=== PATIENT | male | born 1950 | race Caucasian/White ===

== ENCOUNTER → 2020-12-02 | Outpatient (CLI) | payer BC ==
[~2020-12-02] MED LIST: FLEXERIL PO; HTN MED; IBUPROFEN 800800 M1 PO; IBUPROFEN 800800 MG PO; NORCO 5-325 TA1 EACH PO
== END ==
LOC: SJCVCIMAG 10:11
PROVIDERS: ATTEND Internal Medicine Cardiovascular Disease
DX: I11.9 Hypertensive heart disease without heart failure (principal); I48.91 Unspecified atrial fibrillation

== ENCOUNTER → 2020-12-14 | Outpatient (CLI) | payer BC | LOC: SJCVCIMAG 09:01 | PROVIDERS: ATTEND Internal Medicine Cardiovascular Disease | DX: I49.3 Ventricular premature depolarization (principal); I48.91 Unspecified atrial fibrillation; R06.00 Dyspnea, unspecified; E78.5 Hyperlipidemia, unspecified; I10 Essential (primary) hypertension; Z79.899 Other long term (current) drug therapy ==

== ENCOUNTER → 2021-02-03 | Outpatient (CLI) | payer BC ==
[~2021-02-03] VITALS: Ht 175.3 cm; Wt 132.0 kg
[~2021-02-03] MED LIST changes: +BISOPROLOL-HCT1 EAC1 PO; +BROMFENAC SODI1.7 ML OPHTHALMIC; +ROSUVASTATIN CA10 MG PO; +XARELTO20 MG PO; +ZESTRIL40 MG PO
[2021-02-03 07:40] VITALS: BP 138/78
--- NOTE | 2021-02-03 09:37 | TEE ---
[facility] [address] TRANSESOPHAGEAL ECHOCARDIOGRAM Name: NELSY SCOTT Room #: REG OLLIE Medrano#: [id number] Admission: 02/03/21 Attend Phys: Wolf De Leon MD, Discharge: Date of : 54 Report #: [id number] THIS REPORT FOR: cc: Matt Koehler MD, Christopher B. MD Lundgren, Craig H. MD [facility] ~ APPROVED REPORT Study performed: 02/03/2021 08:35:19 EXAM: Transesophageal Echocardiogram with Doppler and Cardioversion Patient Location: [facility] Room #: 9 Status: routine BSA: 2.42 HR: 54 bpm BP: 98/62 mmHg Rhythm: Atrial Fibrillation Other Information Study Quality: Good Indications Atrial Fibrillation 2D Dimensions Ascending Ao: 4.70 (22-36mm) Procedure After obtaining informed consent, patient underwent transesophageal echo in the [employer]. Type of Sedation : Conscious Sedation Sedation was administered by RN. Sedation start time: 839 Case end Time: 851 Versed (5) Fentanyl (50) Transesophageal probe was inserted and advanced into esophagus without difficulty by Wolf De Leon MD. Echo enhancement indication: R/O Septal defect. Echo enhancement agent administered: Agitated Saline The SUSY was performed without complications. Synchronized Cardioversion acheived with 200 Joules after 1 attempt(s). Rhythm following Synchronized Cardioversion: Normal Sinus Rhythm [facility] [address] [place] [address] TRANSESOPHAGEAL ECHOCARDIOGRAM Name: NELSY SCOTT Room #: REG [facility].#: [id number] Admission: 02/03/21 Attend Phys: Wolf De Leon, Discharge: Date of : 54 Report #: [id number] Throughout the procedure, the blood pressure, pulse oximetry, cardiac rhythm, and rate were monitored. The patient tolerated the procedure without adverse effects. Recovery from conscious sedation was uneventful and vital signs were stable. Left Ventricle The left ventricle is normal size. There is normal LV segmental wall motion. There is normal left ventricular wall thickness. The left ventricular systolic function is normal. The left ventricular ejection fraction is within the normal range. LVEF is 55%. The left ventricular diastolic function is normal. Right Ventricle The right ventricle is normal size. The right ventricular systolic function is normal. Atria Left atrium is dilated. No shunting by contrast bubble injection Right atrium is dilated. Aortic Valve The aortic valve is normal in structure, trileaflet Mild aortic regurgitation. There is no aortic valvular stenosis. Mitral Valve The mitral valve is normal in structure. Mild mitral regurgitation. No evidence of mitral valve stenosis. Tricuspid Valve The tricuspid valve is normal in structure. Mild tricuspid regurgitation. Pulmonic Valve The pulmonary valve is normal in structure. Trace pulmonic regurgitation. Great Vessels The aortic root is normal in size. Ascending thoracic aorta is dilated (4.7cm) IVC is normal in size and collapses >50% with inspiration. Pericardium There is no pericardial effusion. <Conclusion> [facility] [address] [place] [address] TRANSESOPHAGEAL ECHOCARDIOGRAM Name: NELSY SCOTT Room #: REG [facility].#: [id number] Admission: 02/03/21 Attend Phys: Wolf De Leon, Discharge: Date of : 54 Report #: [id number] The left ventricular systolic function is normal. There is normal LV segmental wall motion. LVEF is 55%. Both atria are severely dilated. No shunting by contrast bubble injection The aortic valve is normal in structure, trileaflet. Mild aortic regurgitation, no stenosis. The mitral valve is normal in structure. Mild mitral regurgitation. Ascending thoracic aorta is dilated (4.7cm) There is no pericardial effusion. Successful cardioversion of atrial fibrillation to sinus rhythm following a single biphasic 200 J synchronous shock <ELECTRONICALLY SIGNED> By: Wolf De Leon MD, FACC 02/03/2136 5 5 Wolf De Leon MD, FACC /INF
== END | disposition home or self-care (01) ==
LOC: CATH 06:48
PROVIDERS: ATTEND Internal Medicine
DX: I48.91 Unspecified atrial fibrillation (principal); I08.3 Combined rheumatic disorders of mitral, aortic and tricuspid valves; I10 Essential (primary) hypertension; I25.10 Atherosclerotic heart disease of native coronary artery without angina pectoris; E78.5 Hyperlipidemia, unspecified; Z79.899 Other long term (current) drug therapy; Z79.01 Long term (current) use of anticoagulants

== ENCOUNTER 2021-04-14 19:24 | Emergency (ER) | payer BC ==
[~2021-04-14] VITALS: Ht 175.3 cm; Wt 131.5 kg
[2021-04-14 20:06] VITALS: BP 114/74
== END 2021-04-14 19:50 | disposition home or self-care (01) ==
LOC: ER 19:24
DX: U07.1 COVID-19 (principal); I10 Essential (primary) hypertension; I48.91 Unspecified atrial fibrillation; Z79.899 Other long term (current) drug therapy